=== PATIENT | female | born 2000 | race Caucasian/White ===

== ENCOUNTER 2022-06-08 08:04 | Outpatient (CLI) | payer OTHER, SELFPAY ==
--- NOTE | ~2022-06-08 | US_ITS ---
US abdomen limited DATE: 06/08/2022 09:10 INDICATION: Intermittent right upper quadrant abdominal pain for one month TECHNIQUE: Real-time imaging of liver, pancreas, gallbladder COMPARISON: None FINDINGS: No hepatic or pancreatic space-occupying mass lesion is evident. Normal hepatopedal portal venous flow direction. There is an approximately 4.6 mm polyp along the proximal posterior wall of the gallbladder. No galls tones or gallbladder wall thickening or pericholecystic fluid collection. Negative sonographic Polanco 's sign. The common bile duct measures up to 5 mm, within normal range. IMPRESSION: 4.6 mm gallbladder polyp Reviewed, dictated and finalized at Location A. Reviewed, dictated and finalized at location A. 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
== END 2022-06-08 08:05 | disposition home or self-care (01) ==
PROVIDERS: PCP Family Medicine; Visit Provider Family Medicine
DX: R10.11 Right upper quadrant pain (principal); K82.4 Cholesterolosis of gallbladder
CPT/HCPCS: 76705

== ENCOUNTER 2022-06-12 07:50 | Outpatient (CLI) | payer OTHER, SELFPAY ==
--- NOTE | ~2022-06-12 | NM_ITS ---
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 TECHNIQUE: 4.9 mCi Tc-99m mebrofenin (Choletec) was administered intravenously. Scintigraphic images of the abdomen were obtained for one hour. At the 1 hour time point, the patient drank 8 oz Ensure, and imaging was continued for 60 minutes. Gallbladder ejection fraction was calculated by the technol ogist. FINDINGS: There is normal clearance of radiotracer from the blood pool. There is homogeneous tracer u ptake by the liver. Activity progresses to the bowel and gallbladder. The gallbladder ejection fract ion is 53%. Note that with this technique, normal GBEF >= 33%. IMPRESSION: 1. Normal hepatobiliary scan. Reviewed, dictated and finalized at location A. HOGGER OPERATOR
== END 2022-06-12 07:51 | disposition home or self-care (01) ==
LOC: ANHIMG 07:52
PROVIDERS: PCP Family Medicine; Visit Provider Physician Assistant
DX: R10.11 Right upper quadrant pain (principal)
CPT/HCPCS: 78226; A9537

== ENCOUNTER 2022-10-08 15:24 | Outpatient (CLI) | payer OTHER, SELFPAY ==
[2022-10-08 16:16] LABS: Hematocrit 32.9 % (37.0-47.0); Hemoglobin 10.5 g/dL (12.0-15.0); Mean Corpuscular HGB Conc 31.9 g/dl (32-36); Mean Corpuscular Hemoglobin 24.5 pg (26-34); Mean Corpuscular Volume 76.7 fl (80-100); Platelet Count Result 332 k/mm3 (150-375); Red Blood Count 4.29 M/mm3 (4.2-5.4); Red Cell Distribution Width 13.2 % (11.5-14.5); White Blood Count 8.3 K/mm3 (4.5-10.0)
[2022-10-08 16:39] LABS: Alanine Aminotransferase 20 U/L (6-35); Albumin Level 4.2 g/dL (3.5-5.1); Alkaline Phosphatase 63 U/L (38-126); Amylase 77 U/L (30-110); Anion Gap 6 mmol/L (8-16); Aspartate Amino Transferase 27 U/L (14-36); Bilirubin,Total 0.4 mg/dL (0.2-1.3); Blood Urea Nitrogen 12 mg/dL (7-17); Calcium 9.2 mg/dL (8.4-10.2); Carbon Dioxide 25 mmol/L (22-30); Chloride 104 mmol/L (98-107); Estimated Glomerular Filt Rate > 60; Glucose 84 mg/dL (65-110); Lipase 128 U/L (23-300); Potassium 3.9 mmol/L (3.4-5.0); Sodium 135 mmol/L (137-145)
== END 2022-10-08 15:25 | disposition home or self-care (01) ==
PROVIDERS: PCP Family Medicine; Visit Provider Nurse Practitioner
DX: R19.8 Other specified symptoms and signs involving the digestive system and abdomen (principal); R10.11 Right upper quadrant pain
CPT/HCPCS: 36415; 80053; 82150; 83690; 85027

== ENCOUNTER → 2022-10-09 08:49 | Outpatient (CLI) | payer OTHER, SELFPAY ==
--- NOTE | ~2022-10-09 | US_ITS ---
Limited Abdominal Sonogram: Real-time sonographic imaging of the right upper quadrant was performed. Clinical History: Right upper quadrant pain Findings: The liver appears normal with no evidence of mass lesion or bile duct dilatation. Main por omid vein demonstrates normal direction of flow. The gallbladder is well distended, and appears normal with no evidence of mobile gallstone. There is a 6 mm gallbladder wall polyp. The common bile duct m easures 3 mm. The visualized pancreas, aorta, and IVC are unremarkable. Right kidney measures 9.8 cm in length, without evidence of hydronephrosis. Impression: 6 mm gallbladder wall polyp. Reviewed, dictated and finalized at location M. Impression: 6 mm gallbladder wall polyp.
== END ==
PROVIDERS: PCP Family Medicine; Visit Provider Nurse Practitioner
DX: K82.4 Cholesterolosis of gallbladder (principal)
CPT/HCPCS: 76705

== ENCOUNTER 2022-10-10 11:43 | Outpatient (CLI) | payer OTHER, SELFPAY ==
[2022-10-10 13:24] LABS: Iron 47 ug/dL (37-170)
[2022-10-10 13:47] LABS: Percent Iron Saturation 9 % (20-50)
[2022-10-10 14:19] LABS: Ferritin 4.93 ng/mL (6.24-137)
[2022-10-10 14:57] LABS: Folic Acid > 20.0 ng/mL (2.76->20)
== END 2022-10-10 11:44 | disposition home or self-care (01) ==
LOC: ANHLAB 11:45
PROVIDERS: PCP Family Medicine; Visit Provider Nurse Practitioner
DX: D50.9 Iron deficiency anemia, unspecified (principal)
CPT/HCPCS: 36415; 82607; 82728; 82746; 83540; 83550

== ENCOUNTER 2022-10-22 01:45 | Day surgery (SDC) | payer OTHER, SELFPAY ==
[2022-10-13 13:51] VITALS: BMI 31.1
--- NOTE | 2022-10-13 13:55 | PC.NURSE ---
Report to the Outpatient Waiting Room, entrance under the green pavilion located off [facility], at time 8:00 on date 10/22/22. Planned Procedure Time: 10:00. Time changes happen often and if your time is changed the preop area will call you the afternoon before. - You and your visitor will be asked to self-screen and do not enter if you have any COVID symptoms. - Only one visitor is requested with a max of two and NO children visitors are allowed at this time. - The patient visitor may be requested to leave or wait in car when not with patient due to distancing restrictions. - A mask is optional within the hospital at this time. Patients may have clear liquids (water, carbonated beverages, clear teas, apple juice) until 3 hours prior to surgery (7:00) with a maximum of 20 ounces. - No food from midnight until time of surgery Take the following medications with a SIP of water the morning of surgery: FLUOXETINE DO NOT STOP ANY OF YOUR OTHER PRESCRIPTION MEDICATIONS PRIOR TO SURGERY EXCEPT THE FOLLOWING Medications to discontinue per physician: VITAMINS/SUPPLEMENTS Date to take last dose: 10/18/22 Please no make-up, nail azeri, hairspray, perfume, deodorant, or body powder the day of surgery. No jewelry (including any body piercings) or valuables the day of surgery, leave them at home. Please take a shower or bath the night before, or the morning of, surgery with an antibacterial soap (HIBICLENS). Wear comfortable, loose fitting clothing. - Jewelry must be removed prior to entering the operating room. Rings and piercings that are not removed may be cut off. - The hospital will not accept responsibility for valuables. - Please leave all valuables, including medications, at home the day of surgery. If you are going home after surgery, a licensed tractor driver teamster must drive you home. - NO public transportation without another adult if you receive anesthesia. - We recommend that an adult stay with you for 24 hours following discharge. - We also recommend that you do not drive, make important decision, drink alcoholic beverages, or take any drugs that were not prescribed by your health care provider for at least 24 hours after your discharge time. Follow any additional instructions given to you from your surgeon. If you or anyone in your household have experienced Covid symptoms in the past week, please notify your surgeon or the nurse liaison at the phone number below for possible testing. Telephone instructions given to CELESTINO - JACQUELINE LARIOS and asked if any additional questions and then verbalized understanding. Patient advised to call surgeon office or pre surgery nurse liaison [phone] if any additional questions.
[2022-10-22] VITALS (9 sets, daily range): BP systolic 91–123; BP diastolic 53–64; PULSE 78–97; RESP 15–18; TEMP 36.6–36.8; O2SAT 97–100
[2022-10-22] MEDS: LACTATED RINGERS 1,000 ML 30 ML IV CONT ×2 (08:54→12:29)
--- NOTE | 2022-10-22 08:58 | WPDHPUPDATE1 ---
History and Physical Update Update Date/Time: 10/22/22 08:58 History and Physical has been reviewed, including an updated exam of the patient. There are NO changes in the patient's condition. Risks, benefits, and alternatives have been discussed and questions answered. Patient agrees to proceed with procedure.
[2022-10-22] MEDS: ACETAMINOPHEN 500 MG TABLET 1000 MG PO (08:59)
[2022-10-22] MEDS: SCOPOLAMINE 1.5 MG PATCH TRANSDERM (09:04)
[2022-10-22] MEDS: KETOROLAC 15 MG/ML VIAL (*BKC) IV PUSH (09:05)
--- NOTE | 2022-10-22 09:36 | WPDANESEPPF ---
Anes - Initial Pre Proc Eval Procedure: Operation Date: 10/22/22 10:00 Proposed Procedures p Laparoscopic Cholecystectomy - Kerri Mao MD Date/Time: 10/22/22 09:37 Surgeon: Kerri Mao MD Pre Op Diagnosis: gallbladder polyps Patient Data Age: 22 Gender: F Height: 1.57 m Weight: 74.45 kg Last Vital Signs Temp 36.8 C 10/22/22 08:06 Pulse 78 10/22/22 08:06 Resp 16 10/22/22 08:06 BP 123/64 10/22/22 08:06 Pulse Ox 100 10/22/22 08:06 O2 Del Method Room Air 10/22/22 08:06 Allergies Allergy/AdvReac Type Severity Reaction Status Date / Time No Known Allergies Allergy Verified 10/22/22 08:37 Home Medications Medication Instructions Recorded Confirmed Type drospirenone 3 mg-ethinyl 1 tablet PO DAILY 06/02/22 10/22/22 History estradiol 0.02 mg tablet (MODESTO (28)) fluoxetine 10 mg capsule 10 mg PO DAILY #90 caps 09/29/22 10/22/22 Rx pantoprazole 40 mg tablet,delayed 40 mg PO QAM #30 tabs 10/08/22 10/22/22 Rx release ferrous sulfate 325 mg (65 mg 325 mg PO DAILY #30 tabs 10/12/22 10/22/22 Rx iron) tablet multivitamin 1 tablet PO DAILY 10/12/22 10/22/22 History Lactobacillus 1 cap PO DAILY 10/13/22 10/22/22 History acidophilus-Bifidobac.animalis 2.5 billion cell capsule (Daily Probiotic) Patient hx anesthesia problems: none Family hx anesthesia problems: none Results Review: All pre-operative results and documents have been reviewed as part of the pre-operative evaluation. [facility] Past Medical History Medical History DILCIA (generalized anxiety disorder) Gastric ulcer GERD (gastroesophageal reflux disease) Microcytic anemia Overweight (BMI 25.0-29.9) Positive Polanco's Sign Right upper quadrant abdominal pain Surgical History Surgical History History of excision of lesion mole removal from left leg Family History Family History Father Hypertension Other Heart disease Social History Social History Smoking status: Never smoker Alcohol intake: current Drinks per week: 1 Substance use: never Substance use type: does not use Living arrangements: with family Occupation/Education: occupation 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 Gender identity (if verbalized by the patient): Female Sexual Orientation (if Verbalized by the Patient): Straight or Heterosexual Spiritual care concerns: No Anes - Eval Final PreProcedure Day of Procedure 10/22/22 09:37 Patient weight: overweight Heart: regular rate and rhythm Lungs: clear to auscultation Airway: Mallampati scale class II Neurological: alert and oriented Last oral intake: >/= 8 hours ASA classification: II Emergent: no Anesthetic plan: proceed Anesthesia type and monitoring: general ETT and standard monitoring Results Review: All pre-operative results and documents have been reviewed as part of the pre-operative evaluation. Informed Consent: The patient's anesthetic plan and its attendant risks and benefits were discussed with the patient/family/POA. Questions were solicited and answers provided to the satisfaction of the patient/family/POA.
[2022-10-22] MEDS: ceFAZolin 2 GM/D5W 50 ML 2 GM/50 ML BAG IVPB (10:35)
[2022-10-22] MEDS: BUPIVACAINE/EPINEPHRINE 0.5% 50 ML VIAL 30 ML INFILTRATE (10:48)
--- NOTE | 2022-10-22 11:24 | W.PM.PROC2 ---
Procedure Note - Detailed Date of Procedure 10/22/22 Pre-op Diagnosis gallbladder polyps, biliary colic Post-op Diagnosis Same Procedure Performed Laparoscopic cholecystectomy Surgeon Kerri Mao MD Anesthesia General Indications 22-year-old female presented to the office complaining of postprandial right upper quadrant abdominal pain associated with nausea and vomiting. Workup including imaging significant for gb polyps, biliary colic. Findings chronic cholecystitis Description of Procedure The patient was taken to the operating room placed in the supine position. After adequate induction of general anesthesia, the patient was prepped and draped in normal sterile fashion. A time-out was then performed to verify the patient's identity as well as the procedure being performed. I then made a 5 mm incision in the infraumbilical region. Through this, a Veress needle was placed into the peritoneal cavity and CO2 gas was then insufflated. After adequate pneumoperitoneum was achieved, the Veress needle was removed and a 5 mm optiview trocar was placed through this incision under direct visualization. I then placed the laparoscope through this trocar site and under direct visualization placed a further 12 mm subxiphoid port as well as 2 additional 5 mm ports in the right upper abdomen. The gallbladder was then identified and was noted to be moderately inflamed and distended. I was able to place a grasper at the dome of the gallbladder and this was retracted anterior and cephalad up over the liver. A 2nd retractor was then placed at the infundibulum and retracted laterally, this allowed visualization of the triangle of Calot. I then was able to visualize the cystic duct in its entirety from its proximal insertion into the gallbladder, to its distal junction with the common hepatic/common bile duct junction. At this point, I carefully skeletonized the proximal cystic duct with the [place] dissector. I then clipped and transected the proximal cystic duct. Next I visualized the cystic artery. Again the artery was skeletonized, clipped, and transected. I then used the Bovie cautery to take down the peritoneal attachments of the gallbladder off the liver bed. Once the gallbladder specimen was completely detached, an endo-pouch was placed through the 12 mm port site. I then placed the gallbladder specimen into the Endo pouch and removed the endo-pouch from the 12 mm port site. The specimen will now be sent to pathology for further review. I then copiously irrigated the right upper quadrant. Hemostasis was noted in the liver bed, the clips were noted to be in good position on both the cystic duct stump and the cystic artery stump. No other pathology was noted in the right upper quadrant. I then moved the laparoscope to the subxiphoid port. No iatrogenic injury or other pathology was noted in the lower abdomen. I then closed the 12 mm trocar site under direct visualization using the Blake cone and 0 Vicryl suture. At this point, the abdomen was desufflated and all ports removed. All port sites were then closed with 4.O Monocryl subcuticular sutures. Dermabond was placed on each incision. The patient tolerated the procedure well, was extubated in the operating room postoperative and will be transferred to the recovery room in stable condition Estimated Blood Loss 5 Drains No Packing No Pathology Yes Complications No immediate complications Condition Stable Disposition PACU [facility] Billing Surgery - Charge Forward: Surgery Billing
[2022-10-22] MEDS: fentaNYL CITRATE INJ (*CRX) 100 MCG/2 ML VIAL 25 MCG IV PUSH ×2 (11:50→11:53)
[2022-10-22] MEDS: ONDANSETRON INJ 4 MG/2 ML VIAL IV PUSH (12:29)
[2022-10-22] MEDS: HALOPERIDOL LACTATE 5 MG/ML VIAL 1 MG IV PUSH (12:56)
[2022-10-22] MEDS: oxyCODONE HCL (*CRX) 5 MG TAB IR PO (13:08)
== END 2022-10-22 13:55 | disposition home or self-care (01) ==
PROVIDERS: PCP Family Medicine; Visit Provider Surgery
PROC: 0FT44ZZ Resection of Gallbladder, Percutaneous Endoscopic Approach (ICD-10-PCS; CPT 47562; principal; 2022-10-22 10:00)
DX: K81.1 Chronic cholecystitis (principal); K21.9 Gastro-esophageal reflux disease without esophagitis; F41.1 Generalized anxiety disorder; D64.9 Anemia, unspecified
CPT/HCPCS: 47562; 36415; 86850; 86900; 86901; 88304; A9270; J0690; J1100; J1630; J1885; J2250; J2405; J2704; J2710; J3010; J7030; J7120

== ENCOUNTER 2023-02-11 10:49 | Outpatient (CLI) | payer OTHER, SELFPAY ==
--- NOTE | ~2023-02-11 | XR_ITS ---
EXAM: XR abdomen/kub 1V DATE: 02/11/2023 11:45 HISTORY: GB REMOVED 10/15,N/V/D AND CONSTIPATION PERSISTS . COMPARISON: None available. FINDINGS: Clear lung bases. Cholecystectomy clips. Normal bowel gas pattern. Enlarged liver and sple en. No abnormal abdominal calcification. Regional bones and soft tissues normal for age. IMPRESSION: Hepatosplenomegaly. No radiographic evidence of obstruction or ileus. Reviewed, dictated and finalized at location K. IMPRESSION: Hepatosplenomegaly. No radiographic evidence of obstruction or ileu s.
[2023-02-11 11:50] LABS: Basophils Percent Auto 0.3 % (0.2-1.2); Eosinophils Absolute Auto 0.3 K/mm3 (0-0.3); Eosinophils Percent Auto 4.1 % (0-4.4); Hematocrit 39.8 % (37.0-47.0); Hemoglobin 12.4 g/dL (12.0-15.0); Immature Granulocyte Absolute 0.03 K/mm3 (0.00-0.031); Immature Granulocyte Percent A 0.4 % (0-0.5); Lymphocytes Absolute Auto 2.32 K/mm3 (0.9-3.2); Lymphocytes Percent Auto 32.5 % (18.3-44.2); Mean Corpuscular HGB Conc 31.2 g/dl (32-36); Mean Corpuscular Hemoglobin 26.4 pg (26-34); Mean Corpuscular Volume 84.9 fl (80-100); Mean Platelet Volume 9.6 fl (7.4-10.4); Monocytes Absolute Auto 0.6 K/mm3 (0.1-0.6); Neutrophils Absolute Auto 3.9 K/mm3 (1.3-6.7); Neutrophils Percent Auto 54.7 % (45.5-73.1); Platelet Count Result 336 k/mm3 (150-375); Red Blood Count 4.69 M/mm3 (4.2-5.4); Red Cell Distribution Width 13.4 % (11.5-14.5); White Blood Count 7.1 K/mm3 (4.5-10.0)
[2023-02-11 11:52] LABS: Appearance Urine Clear (Clear); Bilirubin Urine Negative (Negative); Blood Urine Negative (Negative); Color Urine Yellow (Yellow); Glucose Urine UA Negative (Negative); Ketones Urine Negative (Negative); Leukocyte Esterase Ur Negative LEU/UL (Negative); Nitrate Urine Negative (Negative); Protein Urine Negative (Negative); Specific Grav Ur 1.008 (1.001-1.035); Urobilinogen Urine 0.2 mg/dL (<2.0)
[2023-02-11 11:55] LABS: Add Urine Microscopic? NO
[2023-02-11 12:00] LABS: Iron 65 ug/dL (37-170)
[2023-02-11 12:00] LABS: Alanine Aminotransferase 26 U/L (6-35); Albumin Level 4.4 g/dL (3.5-5.1); Alkaline Phosphatase 52 U/L (38-126); Anion Gap 7 mmol/L (8-16); Aspartate Amino Transferase 26 U/L (14-36); Bilirubin,Total 0.3 mg/dL (0.2-1.3); Blood Urea Nitrogen 6 mg/dL (7-17); CRP < 0.5 mg/dL (<1.0); Calcium 9.1 mg/dL (8.4-10.2); Carbon Dioxide 25 mmol/L (22-30); Chloride 107 mmol/L (98-107); Estimated Glomerular Filt Rate > 60; Glucose 96 mg/dL (65-110); Potassium 3.6 mmol/L (3.4-5.0); Sodium 139 mmol/L (137-145)
[2023-02-11 12:10] LABS: Percent Iron Saturation 14 % (20-50)
[2023-02-11 12:19] LABS: Erythrocyte Sedimentation Rate 16 mm/hr (0-20)
[2023-02-11 13:09] LABS: Folic Acid > 20.0 ng/mL (2.76->20)
[2023-02-16 10:48] LABS: Immunoglobulin A 216 mg/dL (47-310); TTG IGA AB <1.0 U/mL (<15.0)
== END 2023-02-11 10:50 | disposition home or self-care (01) ==
LOC: ANHLAB 10:51
PROVIDERS: PCP Family Medicine; Referring Provider Nurse Practitioner; Visit Provider Physician Assistant
DX: R11.2 Nausea with vomiting, unspecified (principal); K59.00 Constipation, unspecified; K52.9 Noninfective gastroenteritis and colitis, unspecified; D50.9 Iron deficiency anemia, unspecified
CPT/HCPCS: 36415; 74018; 80053; 81003; 82607; 82728; 82746; 82784; 83540; 83550; 84443; 85025; 85652; 86140; 86364

== ENCOUNTER 2023-02-12 12:47 | Outpatient (CLI) | payer OTHER, SELFPAY ==
[2023-02-12 13:57] LABS: Monoscreen Negative (Negative); Negative Monotest Control Negative (Negative); Positive Monotest Control Positive (Positive)
== END 2023-02-12 12:48 | disposition home or self-care (01) ==
LOC: ANHLAB 12:48
PROVIDERS: PCP Family Medicine; Visit Provider Nurse Practitioner
DX: R16.2 Hepatomegaly with splenomegaly, not elsewhere classified (principal)
CPT/HCPCS: 36415; 86308

== ENCOUNTER → 2023-02-17 11:30 | Outpatient (CLI) | payer OTHER, SELFPAY ==
--- NOTE | ~2023-02-17 | US_ITS ---
Abdominal Sonogram: Real-time sonographic imaging of the abdomen was performed. Clinical History: Hepatosplenomegaly Findings: The liver appears normal with no evidence of mass lesion or bile duct dilatation. Main por omid vein demonstrates normal direction of flow. The spleen measures 11.1 x 4.1 x 4.6 cm. No focal spl enic lesion seen. The gallbladder is absent, compatible prior cholecystectomy. The common bile duct measures 4 mm. The visualized pancreas, aorta, and IVC are unremarkable. The right kidney measures 9.9 cm in length and the left kidney measures 11.5 cm. There is no hydronephrosis or renal calculus. Impression: No significant abnormality seen. Reviewed, dictated and finalized at location . Impression: No significant abnormality seen.
== END ==
PROVIDERS: PCP Family Medicine; Visit Provider Nurse Practitioner
DX: R16.2 Hepatomegaly with splenomegaly, not elsewhere classified (principal); R11.0 Nausea
CPT/HCPCS: 76700

== ENCOUNTER 2023-02-19 01:03 | Day surgery (SDC) | payer OTHER, SELFPAY ==
[2023-02-15 11:02] VITALS: BMI 30.8
--- NOTE | 2023-02-18 15:09 | PM.HPGS ---
History of Present Illness History of Present Illness Consent: Risks, benefits, and alternatives have been discussed and questions answered. Patient agrees to proceed with procedure. Chief complaint: nausea, vomiting, GERD Narrative: Tamia Contreras is a 22 year old female Who has been seen in our office a few months ago for epigastric abdominal pain, belching with nausea and vomiting worse after eating.? She has a history of chronic GERD and gallbladder polyp.? When we had initially seen her she was already improving on omeprazole 20 mg daily and Carafate and recently had started fluoxetine.? She continues on omeprazole 20 mg daily and has since discontinued the Carafate.? She denies any right upper quadrant abdominal pain, postprandial right upper quadrant pain, nausea, vomiting, acid reflux, dysphagia or odynophagia. she has also developed right upper quadrant pain prompting further investigation with HIDA scan which was normal. She was then referred to surgery and underwent cholecystectomy. No stones were seen. She was again seen in our office a week or so. This is the 4th time in 7 months that Alie has seen her. She is again having nausea and vomiting he reports a severe episode in late December after she may have eaten something bad because she had diarrhea for few days and also. She is taking Zofran which helps somewhat. She has no abdominal pain. despite this chronic nausea and episodes of vomiting, Her weight is stable. she does have a low iron had briefly been anemic but serology for celiac disease was negative. Review of Systems Review of Systems: All systems reviewed & are unremarkable except as noted in HPI and below PMFSH Past Medical History Medical History Constipation DILCIA (generalized anxiety disorder) Gastric ulcer GERD (gastroesophageal reflux disease) Hepatosplenomegaly Microcytic anemia Nausea and vomiting Obesity Overweight (BMI 25.0-29.9) Positive Polanco's Sign Right upper quadrant abdominal pain Surgical History Surgical History History of excision of lesion mole removal from left leg S/P laparoscopic cholecystectomy 10/22/22 Family History Family History Father Hypertension Other Heart disease Social History Social History Smoking status: Never smoker Alcohol intake: current Drinks per week: 1 Substance use: never Substance use type: does not use Lack of Transportation: No Lack of Food: Never True Current Housing: I Have Housing Concerned About Future Housing: No Difficulty Paying Gas/Electric Bills: No Difficulty Paying for Meds: No Currently Unemployed: No Education: Associate Degree Difficulty w/ Childcare or Family Care: No Living arrangements: with family Additional living arrangements comments: lives with parents Occupation/Education: occupation 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 Gender identity (if verbalized by the patient): Female Sexual Orientation (if Verbalized by the Patient): Straight or Heterosexual Spiritual care concerns: No Meds Home Medications and Allergies Home Medications Medication Instructions Recorded Confirmed Type drospirenone 3 mg-ethinyl 1 tablet PO DAILY 06/02/22 02/15/23 History estradiol 0.02 mg tablet (MODESTO (28)) fluoxetine 10 mg capsule 10 mg PO DAILY #90 caps 09/29/22 02/15/23 Rx multivitamin 1 tablet PO DAILY 10/12/22 02/15/23 History Lactobacillus 1 cap PO DAILY 10/13/22 02/15/23 History acidophilus-Bifidobac.animalis 2.5 billion cell capsule (Daily Probiotic) pantoprazole 40 mg tablet,delayed 40 mg PO QAM #90 tabs 12/16/22 02/15/23 Rx release ferrous sulfate 325 mg (65 mg 325 mg PO DAILY #90 tabs 01/08/23 02/15/23 Rx iron) tablet ond
[2023-02-19 07:44] VITALS: BP 117/64; PULSE 76; RESP 20; TEMP 36.5; O2SAT 100; BMI 30.4
[2023-02-19] MEDS: LACTATED RINGERS 1,000 ML 150 ML IV CONT (07:47)
--- NOTE | 2023-02-19 08:13 | WPDANESEPPF ---
Anes - Initial Pre Proc Eval Procedure: Operation Date: 02/19/23 08:30 Proposed Procedures p Esophagogastroduodenoscopy - Reese Partida MD Date/Time: 02/19/23 08:13 Surgeon: Reese Partida MD Pre Op Diagnosis: nausea, vomiting, GERD Patient Data Age: 22 Gender: F Height: 1.57 m Weight: 75.4 kg Last Vital Signs Temp 97.7 F 02/19/23 07:44 Pulse 76 02/19/23 07:44 Resp 20 02/19/23 07:44 BP 117/64 02/19/23 07:44 Pulse Ox 100 02/19/23 07:44 O2 Del Method Room Air 02/19/23 07:44 Allergies Allergy/AdvReac Type Severity Reaction Status Date / Time No Known Allergies Allergy Verified 02/19/23 07:40 Home Medications Medication Instructions Recorded Confirmed Type drospirenone 3 mg-ethinyl 1 tablet PO DAILY 06/02/22 02/15/23 History estradiol 0.02 mg tablet (MODESTO (28)) fluoxetine 10 mg capsule 10 mg PO DAILY #90 caps 09/29/22 02/15/23 Rx multivitamin 1 tablet PO DAILY 10/12/22 02/15/23 History Lactobacillus 1 cap PO DAILY 10/13/22 02/15/23 History acidophilus-Bifidobac.animalis 2.5 billion cell capsule (Daily Probiotic) pantoprazole 40 mg tablet,delayed 40 mg PO QAM #90 tabs 12/16/22 02/15/23 Rx release ferrous sulfate 325 mg (65 mg 325 mg PO DAILY #90 tabs 01/08/23 02/15/23 Rx iron) tablet ondansetron 4 mg disintegrating 4 mg PO Q8H PRN nausea and 02/08/23 02/15/23 Rx tablet vomiting #20 tabs Patient hx anesthesia problems: none Family hx anesthesia problems: none Results Review: All pre-operative results and documents have been reviewed as part of the pre-operative evaluation. [facility] Past Medical History Medical History Constipation DILCIA (generalized anxiety disorder) Gastric ulcer GERD (gastroesophageal reflux disease) Hepatosplenomegaly Microcytic anemia Nausea and vomiting Obesity Overweight (BMI 25.0-29.9) Positive Polanco's Sign Right upper quadrant abdominal pain Surgical History Surgical History History of excision of lesion mole removal from left leg S/P laparoscopic cholecystectomy 10/22/22 Family History Family History Father Hypertension Other Heart disease Social History Social History Smoking status: Never smoker Alcohol intake: current Drinks per week: 1 Substance use: never Substance use type: does not use Lack of Transportation: No Lack of Food: Never True Current Housing: I Have Housing Concerned About Future Housing: No Difficulty Paying Gas/Electric Bills: No Difficulty Paying for Meds: No Currently Unemployed: No Education: Associate Degree Difficulty w/ Childcare or Family Care: No Living arrangements: with family Additional living arrangements comments: lives with parents Occupation/Education: occupation 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 Gender identity (if verbalized by the patient): Female Sexual Orientation (if Verbalized by the Patient): Straight or Heterosexual Spiritual care concerns: No Anes - Eval Final PreProcedure Day of Procedure 02/19/23 08:13 Patient weight: obese Heart: regular rate and rhythm Lungs: clear to auscultation Airway: Mallampati scale class II Neurological: alert and oriented Last oral intake: >/= 8 hours ASA classification: II Emergent: no Anesthetic plan: proceed Anesthesia type and monitoring: general GIVS and standard monitoring Results Review: All pre-operative results and documents have been reviewed as part of the pre-operative evaluation. Informed Consent: The patient's anesthetic plan and its attendant risks and benefits were discussed with the patient/family/POA. Questions were solicited and answers provided to the satisfaction of the patient/family/POA.
[2023-02-19 08:40] VITALS: BP 120/74; PULSE 81; RESP 20; O2SAT 100
[2023-02-19 08:50] VITALS: BP 112/71; PULSE 69; RESP 22; O2SAT 100
[2023-02-19 09:00] VITALS: BP 120/75; PULSE 73; RESP 24; O2SAT 100
== END 2023-02-19 09:07 | disposition home or self-care (01) ==
PROVIDERS: PCP Family Medicine; Visit Provider Internal Medicine Gastroenterology
PROC: 0DJ08ZZ Inspection of Upper Intestinal Tract, Via Natural or Artificial Opening Endoscopic (ICD-10-PCS; CPT 43235; principal; 2023-02-19 08:30)
DX: K21.9 Gastro-esophageal reflux disease without esophagitis (principal); D50.9 Iron deficiency anemia, unspecified; F41.1 Generalized anxiety disorder; Z87.11 Personal history of peptic ulcer disease; E66.9 Obesity, unspecified; Z68.30 Body mass index [BMI] 30.0-30.9, adult
CPT/HCPCS: 43239; 87081; 88305; J2704; J7120

== ENCOUNTER 2023-03-18 07:48 | Outpatient (RCR) | payer OTHER, SELFPAY ==
[2023-03-18 08:10] VITALS: BMI 30.8
[2023-03-18 08:45] VITALS: BMI 30.8
== END 2023-06-07 10:15 | disposition home or self-care (01) ==
LOC: ANHDMC 07:48
PROVIDERS: PCP Family Medicine; Visit Provider Nurse Practitioner Family
DX: K21.9 Gastro-esophageal reflux disease without esophagitis (principal); R11.2 Nausea with vomiting, unspecified; K80.50 Calculus of bile duct without cholangitis or cholecystitis without obstruction; Z71.3 Dietary counseling and surveillance
CPT/HCPCS: 97802

== ENCOUNTER 2023-12-08 08:39 | Outpatient (CLI) | payer OTHER, SELFPAY ==
[2023-12-08 09:20] LABS: Basophils Percent Auto 0.3 % (0.2-1.2); Eosinophils Absolute Auto 0.3 K/mm3 (0-0.3); Eosinophils Percent Auto 3.9 % (0-4.4); Hemoglobin 13.5 g/dL (12.0-15.0); Immature Granulocyte Absolute 0.03 K/mm3 (0.00-0.031); Immature Granulocyte Percent A 0.4 % (0-0.5); Lymphocytes Absolute Auto 2.45 K/mm3 (0.9-3.2); Lymphocytes Percent Auto 30.8 % (18.3-44.2); Mean Corpuscular HGB Conc 32.1 g/dl (32-36); Mean Corpuscular Hemoglobin 27.4 pg (26-34); Mean Corpuscular Volume 85.4 fl (80-100); Mean Platelet Volume 9.5 fl (7.4-10.4); Monocytes Absolute Auto 0.5 K/mm3 (0.1-0.6); Monocytes Percent Auto 6.8 % (2.6-8.5); Neutrophils Absolute Auto 4.6 K/mm3 (1.3-6.7); Neutrophils Percent Auto 57.8 % (45.5-73.1); Platelet Count Result 321 k/mm3 (150-375); Red Blood Count 4.92 M/mm3 (4.2-5.4); Red Cell Distribution Width 12.5 % (11.5-14.5)
[2023-12-08 09:21] LABS: Appearance Urine Clear (Clear); Bilirubin Urine Negative (Negative); Blood Urine Negative (Negative); Color Urine Yellow (Yellow); Glucose Urine UA Negative (Negative); Ketones Urine Negative (Negative); Leukocyte Esterase Ur Negative LEU/UL (Negative); Nitrate Urine Negative (Negative); Protein Urine Negative (Negative); Urobilinogen Urine 0.2 mg/dL (<2.0); pH Urine 6.5 (5.0-9.0)
[2023-12-08 09:24] LABS: Specific Grav Ur 1.004 (1.001-1.035)
[2023-12-08 09:25] LABS: Add Urine Microscopic? NO
[2023-12-08 09:34] LABS: Hemoglobin A1C 5.3 % (<5.7)
[2023-12-08 09:41] LABS: Iron 123 ug/dL (37-170)
[2023-12-08 09:42] LABS: Alanine Aminotransferase 21 U/L (6-35); Albumin Level 4.3 g/dL (3.5-5.1); Alkaline Phosphatase 51 U/L (38-126); Anion Gap 10 mmol/L (4-12); Aspartate Amino Transferase 26 U/L (14-36); Bilirubin,Total 0.4 mg/dL (0.2-1.3); Blood Urea Nitrogen 12 mg/dL (7-17); Calcium 9.5 mg/dL (8.4-10.2); Carbon Dioxide 21 mmol/L (22-30); Chloride 108 mmol/L (98-107); Estimated Glomerular Filt Rate > 60; Glucose 95 mg/dL (65-110); Sodium 139 mmol/L (137-145)
[2023-12-08 09:51] LABS: Percent Iron Saturation 30 % (20-50)
[2023-12-08 10:13] LABS: Thyroid Stimulating Hormone 0.126 uIU/mL (0.465-4.680)
[2023-12-08 10:52] LABS: Folic Acid > 20.0 ng/mL (2.76->20); Vitamin B12 > 1000.0 pg/mL (239-931)
[2023-12-08 10:57] LABS: Vitamin D 25 Hydroxy 45.6 ng/mL
== END 2023-12-08 08:40 | disposition home or self-care (01) ==
LOC: ANHLAB 08:41
PROVIDERS: PCP Family Medicine; Visit Provider Physician Assistant
DX: Z00.00 Encounter for general adult medical examination without abnormal findings (principal); E66.9 Obesity, unspecified; F41.1 Generalized anxiety disorder; R11.2 Nausea with vomiting, unspecified
CPT/HCPCS: 36415; 80053; 81003; 82306; 82607; 82728; 82746; 83036; 83540; 83550; 84443; 85025

== ENCOUNTER 2023-12-13 15:54 | Outpatient (CLI) | payer OTHER, SELFPAY ==
[2023-12-13 17:29] LABS: Amylase 75 U/L (30-110); Lipase 221 U/L (23-300)
== END 2023-12-13 15:55 | disposition home or self-care (01) ==
LOC: ANHLAB 15:55
PROVIDERS: PCP Family Medicine; Visit Provider Family Medicine
DX: R10.11 Right upper quadrant pain (principal)
CPT/HCPCS: 36415; 82150; 83690

== ENCOUNTER 2023-12-28 08:27 | Outpatient (CLI) | payer OTHER, SELFPAY ==
[2023-12-28 10:01] LABS: Free T4 Free Thyroxine 0.95 ng/mL (0.78-2.19)
== END 2023-12-28 08:28 | disposition home or self-care (01) ==
LOC: ANHLAB 08:28
PROVIDERS: PCP Family Medicine; Visit Provider Physician Assistant
DX: R79.89 Other specified abnormal findings of blood chemistry (principal)
CPT/HCPCS: 36415; 84439; 84443; 84480

== ENCOUNTER 2024-01-11 07:29 | Outpatient (CLI) | payer OTHER, SELFPAY ==
--- NOTE | ~2024-01-11 | NM_ITS ---
EXAM: NM gastric emptying study DATE: 01/11/2024 12:50 INDICATION: Nausea and vomiting, unspecified. TECHNIQUE: A gastric emptying study was performed using the methodology of Tri GARCIA, et al. J Nucl Med 2007; 48:568-572. The patient was given a meal consisting of 2 scrambled eggs labeled with 1.01 mCi Tc-99m sulfur colloid, 2 slices of toast, two packages of jam, and approximately 120 mL of water. Simultaneous anterior and posterior 1-min images of the abdomen were obtained with the patient supin e at multiple time points over a total period of 4 hours. The geometric mean of anterior and posterio r views was determined, and the percentage retention was calculated for each time point. COMPARISON: None. FINDINGS: Gastric retention of the radiotracer-labeled meal was 64%, 45%, and 22% at the 1-hour, 2-h our, and 4-hour time points, respectively. With this technique, apparent rapid gastric emptying is williamson ggested by <30% gastric retention at 1 hour. Delayed gastric emptying is defined by gastric retention of >90% at 1 hour, >60% retention at 2 hours, or >10% retention at 4 hours. IMPRESSION: 1. Delayed gastric emptying. Reviewed, dictated and finalized at location E.
[2024-01-17 19:17] LABS: Pancreatic Elastase, Stool >500 mcg/g
== END 2024-01-11 07:30 | disposition home or self-care (01) ==
PROVIDERS: PCP Family Medicine; Visit Provider Nurse Practitioner Family
DX: R11.2 Nausea with vomiting, unspecified (principal); K30 Functional dyspepsia
CPT/HCPCS: 78264; 82653; A9541

== ENCOUNTER 2024-01-14 07:45 | Emergency (ER) | payer OTHER, SELFPAY ==
[2024-01-14 07:53] VITALS: BP 140/72; PULSE 85; RESP 17; TEMP 36.6; O2SAT 100
[2024-01-14 07:54] VITALS: BP 140/72; O2SAT 100
[2024-01-14] MEDS: METOCLOPRAMIDE HCL INJ 10 MG/2 ML VIAL 5 MG IV PUSH (08:13)
[2024-01-14] MEDS: SODIUM CHLORIDE 0.9% IV 1,000 ML 999 ML IV CONT (08:14)
[2024-01-14 08:32] VITALS: BP 141/78; O2SAT 100
[2024-01-14 08:35] LABS: Basophils Percent Auto 0.3 % (0.2-1.2); Eosinophils Absolute Auto 0.2 K/mm3 (0-0.3); Eosinophils Percent Auto 2.8 % (0-4.4); Hematocrit 41.7 % (37.0-47.0); Hemoglobin 13.5 g/dL (12.0-15.0); Immature Granulocyte Absolute 0.02 K/mm3 (0.00-0.031); Immature Granulocyte Percent A 0.3 % (0-0.5); Lymphocytes Percent Auto 22.3 % (18.3-44.2); Mean Corpuscular HGB Conc 32.4 g/dl (32-36); Mean Corpuscular Hemoglobin 27.2 pg (26-34); Mean Corpuscular Volume 83.9 fl (80-100); Mean Platelet Volume 9.7 fl (7.4-10.4); Monocytes Absolute Auto 0.5 K/mm3 (0.1-0.6); Monocytes Percent Auto 7.1 % (2.6-8.5); Neutrophils Absolute Auto 4.8 K/mm3 (1.3-6.7); Neutrophils Percent Auto 67.2 % (45.5-73.1); Platelet Count Result 311 k/mm3 (150-375); Red Blood Count 4.97 M/mm3 (4.2-5.4); Red Cell Distribution Width 12.5 % (11.5-14.5); White Blood Count 7.2 K/mm3 (4.5-10.0)
[2024-01-14 09:05] LABS: Alanine Aminotransferase 16 U/L (6-35); Albumin Level 4.3 g/dL (3.5-5.1); Alkaline Phosphatase 64 U/L (38-126); Anion Gap 10 mmol/L (4-12); Aspartate Amino Transferase 26 U/L (14-36); Bilirubin,Total 0.6 mg/dL (0.2-1.3); Blood Urea Nitrogen 10 mg/dL (7-17); Carbon Dioxide 20 mmol/L (22-30); Chloride 108 mmol/L (98-107); Estimated CRCL calculation 76 ml/min; Estimated Glomerular Filt Rate > 60; Glucose 96 mg/dL (65-110); Potassium 3.9 mmol/L (3.4-5.0); Sodium 138 mmol/L (137-145)
[2024-01-14 09:13] VITALS: BP 102/73; O2SAT 100
--- NOTE | 2024-01-14 10:03 | ED.ABDPAIN ---
HPI - Abdominal Pain General Chief Complaint: Abdominal Pain Stated Complaint: i was diagnosed w/gastroparesis Time Seen by Provider: 01/14/24 07:50 Source: patient and family Mode of arrival: ambulatory Limitations: no limitations History of Present Illness HPI narrative: 23-year-old here with the complaints of nausea for past few days. Patient states that she was recently diagnosed with gastroparesis has been taking Zofran and Reglan with no major relief. She denies vomiting she states that she has constant nausea. No history of fever or chills. MD elicited complaint: abdominal pain Pertinent past history: other (Gastroparesis) Pain Consistency: constant Location: epigastric Severity: moderate Radiation: none Migration to: no migration Exacerbating factors: nothing Related Data Home Medications Medication Instructions Recorded Confirmed drospirenone 3 mg-ethinyl 1 tablet PO DAILY 06/02/22 12/28/23 estradiol 0.02 mg tablet (MODESTO (28)) multivitamin 1 tablet PO DAILY 10/12/22 12/28/23 Allergies Allergy/AdvReac Type Severity Reaction Status Date / Time No Known Allergies Allergy Verified 01/14/24 07:56 Review of Systems Review of Systems: All systems reviewed & are unremarkable except as noted in HPI and below Constitutional: Constitutional: Reports no additional constitutional complaints Eyes: Eyes: Reports no additional eye complaints Cardiovascular: Cardiovascular: Reports no additional cardiovascular complaints Respiratory: Respiratory: Reports no additional respiratory complaints Gastrointestinal: Gastrointestinal: Reports as per HPI Musculoskeletal: Musculoskeletal: Reports no additional musculoskeletal complaints Integumentary/Breasts: Skin/Breast: Reports system reviewed and no additional complaints, except as docu [facility] Past Medical History Medical History Constipation DILCIA (generalized anxiety disorder) Gastric ulcer GERD (gastroesophageal reflux disease) Hepatosplenomegaly Microcytic anemia Nausea and vomiting Obesity Overweight (BMI 25.0-29.9) Positive Polanco's Sign Right upper quadrant abdominal pain Surgical History Surgical History History of excision of lesion mole removal from left leg S/P laparoscopic cholecystectomy 10/22/22 Family History Family History Father Hypertension Other Heart disease Social History Social History Smoking status: Never smoker Alcohol intake: current Drinks per week: 1 Substance use: never Substance use type: does not use Lack of Transportation: No Lack of Food: Never True Current Housing: I Have Housing Concerned About Future Housing: No Difficulty Paying Gas/Electric Bills: No Difficulty Paying for Meds: No Currently Unemployed: No Education: Associate Degree Difficulty w/ Childcare or Family Care: No Living arrangements: with family Additional living arrangements comments: lives with parents Occupation/Education: occupation 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 HEAD: Normocephalic, atraumatic. EYES: PERRLA and EOMI. ENT: Nares clear, no rhinorrhea or epistaxis. Mucous membranes moist. NECK: Supple. CHEST: Clear to auscultation. No respiratory distress. HEART: Regular rate and rhythm. No murmur heard. Normal peripheral pulses. ABDOMEN: Soft, nontender, nondistended, normal active bowel sounds. EXTREMITIES: Normal range of motion. No edema. SKIN: Warm, dry, no rash. NEURO: No focal deficits. Alert and oriented x
== END 2024-01-14 10:14 | disposition home or self-care (01) ==
PROVIDERS: Emergency Provider Family Medicine; PCP Family Medicine
DX: R11.2 Nausea with vomiting, unspecified (principal); K21.9 Gastro-esophageal reflux disease without esophagitis; E66.9 Obesity, unspecified; Z68.32 Body mass index [BMI] 32.0-32.9, adult; Z86.2 Personal history of diseases of the blood and blood-forming organs and certain disorders involving the immune mechanism; Z79.3 Long term (current) use of hormonal contraceptives
CPT/HCPCS: 36415; 80053; 85025; 96361; 96374; 99284; J2765; J7030

== ENCOUNTER 2024-02-02 08:22 | Outpatient (CLI) | payer OTHER, SELFPAY ==
[2024-02-02 10:38] VITALS: BMI 32.5
--- NOTE | 2024-02-02 10:49 | PCDIET ---
Gastroparesis OP nutrition consult, diet history reveals limited, tolerated foods with low nutritional value that are high in sodium and fat. Multiple nutritional handouts given and discussed. Website shared: [email or web address] reviewed for further self-management education. Patient appeared engaged and willing to implement lifestyle changes. Goals: 56- small meals, low fat/low fiber. walking after each meal to promote motility, follow meal plans to increase nutritional content of meals and better meet calculated needs. Nutritional Nutrient needs based on adjbw: Calories: 28-30kcal/adjbw= 1680-1800kcal, protein: 1.0-1.2gm/adjbw= 60-72gm, Fluid: 1ml/kcal 1680-1800ml.
== END 2024-02-02 08:23 | disposition home or self-care (01) ==
PROVIDERS: PCP Family Medicine; Visit Provider Family Medicine
DX: Z53.21 Procedure and treatment not carried out due to patient leaving prior to being seen by health care provider (principal)
CPT/HCPCS: 99199

== ENCOUNTER 2024-02-05 09:08 | Outpatient (CLI) | payer OTHER, SELFPAY ==
[2024-02-05 11:04] LABS: Toxigenic C. Diff NEGATIVE (NEGATIVE)
[2024-02-09 18:38] LABS: Norovirus RNA PCR, Stool NOT DETECTED
[2024-02-14 16:18] LABS: Calprotectin, Stool 14 mcg/g
== END 2024-02-05 09:09 | disposition home or self-care (01) ==
LOC: ANHLAB 09:09
PROVIDERS: PCP Family Medicine; Referring Provider Nurse Practitioner Family; Visit Provider Nurse Practitioner
DX: R19.7 Diarrhea, unspecified (principal)
CPT/HCPCS: 83993; 87045; 87269; 87425; 87427; 87449; 87493; 87798